=== PATIENT | male | born 1965 | race Caucasian/White ===

== ENCOUNTER 2018-03-28 07:46 | Emergency (ER) | payer OTHER ==
--- NOTE | 2018-03-28 08:24 | C.PDOC ---
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 Patient complains of firm raised mass to one of his superficial vein in the left arm which he feels is a blood clot. He notes that the "clot" is traveling upwards and feels that it will reach his heart, and will subsequently "". He reports trying to remove this mass by pinching the area with a needle without success. He states he experienced similar symptoms in his left leg approximately 2 years ago but was never evaluated for it. Otherwise, denies injury, trauma, weakness, numbness, or fever. He denies IV drug abuse. Time Seen by Provider: 03/28/18 07:49 Chief Complaint (Nursing): Upper Extremity Problem/Injury History Per: Patient History/Exam Limitations: no limitations Onset/Duration Of Symptoms: Sudden Onset Current Symptoms Are (Timing): Still Present Quality: Burning Exacerbating Factor(s): Nothing Recent travel outside of the [place]: No Additional History Per: Patient Past Medical History Reviewed: Historical Data, Nursing Documentation, Vital Signs Vital Signs: Last Vital Signs Temp 98.2 F 03/28/18 07:50 Pulse 90 03/28/18 07:50 Resp 20 03/28/18 07:50 BP 165/100 H 03/28/18 07:50 Pulse Ox 97 03/28/18 08:28 Family History: States: Unknown Family Hx - Social History Hx Alcohol Use: Yes Hx Substance Use: Yes - Immunization History Hx Tetanus Toxoid Vaccination: No Hx Influenza Vaccination: No Review Of Systems Except As Marked, All Systems Reviewed And Found Negative. Constitutional: Negative for: Fever, Chills Cardiovascular: Negative for: Chest Pain, Palpitations Respiratory: Negative for: Cough, Shortness of Breath Musculoskeletal: Positive for: Arm Pain (left). Negative for: Leg Pain Neurological: Negative for: Weakness, Numbness Physical Exam - Physical Exam Appears: Non-toxic, No Acute Distress, Other (anxious) Skin: Warm, Dry, Diaphoretic Head: Atraumatic, Normacephalic Eye(s): bilateral: Normal Inspection Oral Mucosa: Moist Neck: Supple Cardiovascular: Rhythm Regular, No Murmur Respiratory: Normal Breath Sounds, No Rales, No Rhonchi, No Wheezing Gastrointestinal/Abdominal: Soft, No Tenderness Extremity: Normal ROM, Capillary Refill (less than 2 seconds), No Deformity, Other (small raised firm mass to superficial vein of left arm) Extremity: Bilateral: Atraumatic Pulses: Left Radial: Normal, Right Radial: Normal Neurological/Psych: Oriented x3, Normal Speech ED Course And Treatment - Laboratory Results Result Diagrams: 18 08:33 0818 08:33 ECG: Interpreted By Me, Viewed By Me ECG Rhythm: Sinus Rhythm ECG Interpretation: Normal Rate From EC (bpm) O2 Sat by Pulse Oximetry: 97 (RA) Pulse Ox Interpretation: Normal Medical Decision Making Medical Decision Making: Plan: Blood work EKG Venous Duplex scan of left upper extremity Motrin Disposition Counseled Patient/Family Regarding: Studies Performed, Diagnosis, Need For Followup, Rx Given - Disposition Referrals: at [facility] [Outside] Disposition: HOME/ ROUTINE Disposition Time: 10:31 Condition: STABLE Prescriptions: Ibuprofen [Motrin] 1 tab PO TID PRN #30 tab PRN Reason: Pain Instructions: Superficial Phlebitis Forms: [facility] ([place]) - POA Present On Arrival: None - Clinical Impression Clinical Impression: Superficial thrombophlebitis - Scribe Statement The provider has reviewed the documentation as recorded by the Scribe KP All medical record entries made by the Scribe were at my direction and personally dictated by me. I have reviewed the chart and agree that the record accurately reflects my personal performance of the history, physical exam, medical decision making, and the department course for this patient. I have also personally directed, reviewed, and agree with the discharge instructions and disposition.
[2018-03-28 08:46] LABS: BASO % 0.7 % (0.0-2.0); EOS # 0.2 K/uL (0.0-0.7); EOS % 3.9 % (0.0-4.0); HEMOGLOBIN 15.4 g/dL (12.0-18.0); LYMPH # 1.9 K/uL (1.0-4.3); LYMPH % 29.1 % (20.0-40.0); MEAN CELL VOLUME 90.5 fL (80.0-94.0); MEAN CORPUSCULAR HEMOGLOBIN 31.6 pg (27.0-31.0); MEAN CORPUSCULAR HGB CONC 34.9 g/dL (33.0-37.0); MEAN PLATELET VOLUME 7.1 fL (7.2-11.7); MONO # 0.6 K/uL (0.0-0.8); MONO % 9.5 % (0.0-10.0); NEUT # 3.7 K/uL (1.8-7.0); NEUT % 56.8 % (50.0-75.0); NRBC % 0.1 % (0.0-2.0); RBC 4.87 Mil/uL (4.40-5.90); RED CELL DISTRIBUTION WIDTH 13.5 % (11.5-14.5); WHITE BLOOD COUNT 6.5 K/uL (4.8-10.8)
[2018-03-28 08:54] LABS: ALB/GLOB RATIO 1.4 (1.0-2.1); ALBUMIN 4.2 g/dL (3.5-5.0); ALT/SGPT 15 U/L (21-72); AST/SGOT 18 U/L (17-59); BLOOD UREA NITROGEN 9 mg/dL (9-20); CALCIUM 9.3 mg/dl (8.6-10.4); GFR AFRICAN-AMERICAN > 60; GFR NON-AFRICAN AMERICAN > 60
[2018-03-28 10:45] VITALS: BP 146/81; PULSE 70; RESP 18; TEMP 98.1; O2SAT 98
[2018-03-28 10:58] LABS: BARBITURATES, UR NEGATIVE (NEGATIVE); BENZODIAZEPINES, UR NEGATIVE (NEGATIVE); OPIATES, UR NEGATIVE (NEGATIVE); PHENCYCLIDINE, UR NEGATIVE (NEGATIVE)
--- NOTE | 2018-03-29 15:59 | VASCLAB ---
Date of service: 03/28/2018 PROCEDURE: Left Upper Extremity Venous Duplex Exam HISTORY: Arm pain PRIORS: None. TECHNIQUE: Left upper extremity, internal jugular, subclavian, axillary, brachial, ulnar, radial, basilic and upper cephalic veins were evaluated. Flow was assessed with color Doppler, compressibility, assessment of phasic flow and augmentation response. Report prepared by DEVANG King FINDINGS: LEFT: 1. Internal Jugular: 1.1. Compressibility - Fully compressible: Thrombus - None : Flow - Phasic: Augmentation -Normal: Reflux - None. 2. Subclavian: 2.1. Compressibility - Fully compressible: Thrombus - None : Flow - Phasic: Augmentation -Normal: Reflux - None. 3. Axillary: 3.1. Compressibility - Fully compressible: Thrombus - None : Flow - Phasic: Augmentation -Normal: Reflux - None. 4. Brachial: 4.1. Compressibility - Fully compressible: Thrombus - None: Flow - Phasic: Augmentation -Normal: Reflux - None. 5. Ulnar: 5.1. Compressibility - Fully compressible: Thrombus - None: Flow - Phasic: Augmentation -Normal: Reflux - None. 6. Radial: 6.1. Compressibility - Fully compressible: Thrombus - None: Flow - Phasic: Augmentation - Normal: Reflux - None. 7. Cephalic: 7.1. Compressibility - Fully compressible: Thrombus - None: Flow - Phasic: Augmentation -Normal: Reflux - None. 8. Basilic: 8.1. Compressibility - Fully compressible: Thrombus - None: Flow - Phasic: Augmentation -Normal: Reflux - None. OTHER FINDINGS: Left: None. IMPRESSION: Left: No evidence of vein thrombosis of the left upper extremity with excellent venous flow. Normal valve function noted of the left side. Normal venous flow noted in the right internal jugular and right subclavian veins.
== END 2018-03-28 10:50 | disposition home or self-care (01) ==
LOC: C.ER 07:46
DX: I80.9 Phlebitis and thrombophlebitis of unspecified site (principal)